=== PATIENT | female | born 1975 | race Caucasian/White ===

== ENCOUNTER 2018-07-22 11:38 | Emergency (ER) | payer MEDICAID ==
[2018-07-22 11:59] VITALS: BP 135/91
[2018-07-22] MEDS ORDERED: POLYMYXIN B SULFATE/TMP 10 ML OPHT.BTL EACHEYE ONE (12:04)
--- NOTE | 2018-07-22 12:10 | EDPHY ---
H & P Time Seen by Provider: 07/22/18 11:46 HPI/ROS: HPI Cough, congestion, read watery eyes. 43-year-old female, developmentally delayed, with care provider, care provider reports that the patient has had a nonproductive cough with nasal congestion and red watery eyes since . No fever. ROS: Constitutional: No fever, no chills. No weakness. Eyes: As above. ENT: No sore throat. As above. Respiratory: As above. No shortness of breath. Cardiac: No chest pain, no palpitations. Gastrointestinal: No abdominal pain, no vomiting, no diarrhea. Musculoskeletal: No back pain. No neck pain. No myalgias or arthralgias. Skin: No rashes. Neurological: No new focal weakness or altered sensation. Review of systems obtained through care provider. The patient is unable to answer questions. Past medical history: Cerebral palsy, spinal fusion, seizures. Social history: With care provider. Wheelchair-bound. Non communicative. Physical Exam: General Appearance: Alert, baseline activity. This patient appears well- hydrated and well-nourished. Eyes: Some mild scleral erythema with mildly inflamed and injected eyelids. No purulent drainage. Respiratory: There are no retractions, lungs are clear to auscultation with good air movement bilaterally. No tachypnea. No stridor on auscultation of her neck. Cardiovascular: Regular rate and rhythm. No murmur. Neurological: Motor sensory function is grossly baseline. Skin: Warm and dry, no rashes. Musculoskeletal: Neck is supple. Extremities are symmetrical. Psychiatric: Mild agitation. Database: EKG: Imaging: Chest x-ray AP portable: Changes related to spinal scoliosis and fusion. No infiltrate. No acute cardiopulmonary disease process noted. Interpreted by me. Procedures: Emergency department course: Triage vital signs reviewed and are normal. The patient is afebrile. I do not suspect pneumonia. She was started on Polytrim eyedrops in the emergency department for conjunctivitis. Results of chest x-ray discussed with care provider. The care provider tells me she has a appointment with her primary care physician scheduled on Tuesday. This will be perfect for follow-up. I discussed Polytrim eyedrops dosing with the care provider. She feels comfortable taking the patient home. Return to emergency department precautions were thoroughly reviewed with her. All of her questions were answered. The patient was discharged in good condition with her care provider. Differential Diagnosis: The differential diagnosis on this patient includes but is not limited to viral upper respiratory infection, conjunctivitis. Serious bacterial infection unlikely. This represents a partial list of diagnoses considered. These considerations are based on history, physical exam, past history, reassessment and diagnostic testing. Smoking Status: Never smoked Constitutional: Initial Vital Signs Temperature (C) 36.7 C 07/22/18 11:56 Heart Rate 98 07/22/18 11:56 Respiratory Rate 20 07/22/18 11:56 Blood Pressure 135/91 H 07/22/18 11:56 O2 Sat (%) 97 07/22/18 11:56 O2 Delivery Mode Room Air Allergies/Adverse Reactions: Penicillins Allergy (Verified 07/22/18 11:41) Home Medications: Medication Instructions Recorded Amitiza 24 mcg (*) 07/22/18 Calcium Carbonate/Vitamin D3 07/22/18 [Calcium 500 + Vit D Caplet] Divalproex ER [Depakote ER 250 MG 07/22/18 (*)] LEVETIRACETAM [Keppra 1000 mg] 07/22/18 Loratadine 07/22/18 Omeprazole Magnesium [Prilosec] 07/22/18 Risedronate Sodium [Actonel] 07/22/18 carBAMazepine [Carbamazepine] 07/22/18 Departure - Departure Disposition: Home, Routine, Self-Care Clinical Impression: Conjunctivitis, Viral upper respiratory infection Condition: Good Instructions: Upper Respiratory Infection (ED), Conjunctivitis (ED) Additional Instructions: Read and follow provided instructions. Follow-up with your primary care physician as scheduled on Tuesday for re- evaluation. Polytrim eyedrops medication: 1 drop to each eye every 4 hr while awake for 5 days. Return to the emergency department for worsening symptoms, worsening cough, difficulty breathing, fever or other serious concerns. Referrals: Brittaney Worthington MD [Primary Care Provider] - As per Instructions
== END 2018-07-22 12:27 | disposition home or self-care (01) ==
LOC: CED 11:38
DX: J06.9 Acute upper respiratory infection, unspecified (principal); H10.9 Unspecified conjunctivitis
CPT/HCPCS: 71045-PO; 99283-ER